=== PATIENT | male | born 1980 | race Two or more races ===

== ENCOUNTER 2019-10-30 11:54 | Emergency (ER) | payer MEDICAID, OTHER ==
[~2019-10-30] VITALS: Ht 188 cm; Wt 81.6 kg
[2019-10-30 12:23] VITALS: BP 149/83
[2019-10-30] MEDS ORDERED: ACETAMINOPHEN 325 MG TAB PO ONE (12:30)
== END 2019-10-30 17:24 | disposition home or self-care (01) ==
LOC: ER 11:54
DX: J20.9 Acute bronchitis, unspecified (principal)